=== PATIENT | female | born 1975 | race Caucasian/White ===

== ENCOUNTER → 2016-12-13 | Outpatient (CLI) | payer MEDICARE | END | disposition home or self-care (01) | LOC: KCIC MAMMO 15:44 | PROVIDERS: ATTEND Family Medicine | DX: Z12.31 Encounter for screening mammogram for malignant neoplasm of breast (principal) | CPT/HCPCS: G0202; 77067 ==

== ENCOUNTER → 2017-01-08 | Outpatient (CLI) | payer MEDICARE ==
--- NOTE | 2017-01-08 14:08 | KCIC ---
Left breast diagnostic ultrasound HISTORY: Asymmetric tissue density seen in the December 13, 2016 mammogram Sonographic examination was performed of the medial left breast and multiple static images were obtained. There is no focal abnormality identified. IMPRESSION: Negative examination. The asymmetric tissue density could be superimposition of normal fibroglandular tissue or fibrocystic changes. Recommend a 6 month follow-up left mammogram to assess stability. BI-RADS Category 1: Negative. These results were given to the patient in person. Electronically signed by: Ross Forman III, MD (01/08/2017 2:05 PM) [facility]
--- NOTE | 2017-01-08 14:10 | KCIC ---
History: asymmetric tissue density posterior medial left breast on the December 13, 2016 mammogram. Technique: The following digital mammographic additional views were obtained: spot CC spot MLO. Computer aided detection was utilized with iCAD Second Look 7.2-H Findings: The density appears benign and could be fibrocystic changes or an island of normal fibroglandular tissue. Impression: Likely benign recommend the patient return for a six-month follow-up left mammogram to assess stability. BI-RADS Category 3: Probably Benign. These results were given to the patient in person. Patient information is entered into the [facility] reminder system using [employer] with a target due date for the next screening mammogram. The patient will receive a reminder. A mammogram does not have 100% sensitivity and therefore a negative imaging study should not delay further work up of a suspicious abnormality. "Our facility is accredited by the [employer] Mammography [employer]." Electronically signed by: Ross Forman III, MD (01/08/2017 2:07 PM) [facility]
== END | disposition home or self-care (01) ==
LOC: KCIC MAMMO 12:54
PROVIDERS: ATTEND Family Medicine
DX: R92.8 Other abnormal and inconclusive findings on diagnostic imaging of breast (principal)
CPT/HCPCS: 76641; G0206; 77065

== ENCOUNTER → 2017-02-03 | Outpatient (CLI) | payer MEDICARE ==
[2017-02-03 14:39] LABS: ALBUMIN 4.3 g/dL (3.4-5.0); ALBUMIN/GLOBULIN RATIO 1.2 (1.0-1.7); CALCIUM 9.1 mg/dL (8.5-10.1); CREATININE 0.9 mg/dL (0.6-1.0); POTASSIUM 3.8 mmol/L (3.5-5.1); TOTAL BILIRUBIN 0.3 mg/dL (0.2-1.0); TOTAL PROTEIN 7.8 g/dL (6.4-8.2)
== END | disposition home or self-care (01) ==
LOC: LAB 13:59
PROVIDERS: ATTEND Family Medicine
DX: E78.5 Hyperlipidemia, unspecified (principal)
CPT/HCPCS: 36415; 80053; 80061

== ENCOUNTER → 2017-04-30 | Outpatient (CLI) | payer MEDICARE ==
[2017-04-30 14:28] LABS: ALBUMIN 4.1 g/dL (3.4-5.0); ALBUMIN/GLOBULIN RATIO 1.1 (1.0-1.7); ALK PHOS 64 U/L (46-116); ALT (SGPT) 129 U/L (14-59); ANION GAP 10 (6-14); AST (SGOT) 76 U/L (15-37); BLOOD UREA NITROGEN 18 mg/dL (7-20); BUN/CREATININE RATIO 18 (6-20); CALCIUM 9.4 mg/dL (8.5-10.1); CARBON DIOXIDE 26 mmol/L (21-32); CHLORIDE 102 mmol/L (98-107); CHOLESTEROL 288 mg/dL (0-200); GFR 61.1; GLUCOSE 90 mg/dL (70-99); HDLC 29 mg/dL (40-60); POTASSIUM 3.9 mmol/L (3.5-5.1); SODIUM 138 mmol/L (136-145); TOTAL BILIRUBIN 0.5 mg/dL (0.2-1.0); TOTAL PROTEIN 7.9 g/dL (6.4-8.2); TRIGLYCERIDES 404 mg/dL (0-150); VLDLC 81 mg/dL (0-40)
[2017-04-30 14:29] LABS: LDLC 178 mg/dL (0-100); NON-HDL CHOLESTEROL 259 mg/dL (0-129)
[2017-04-30 14:33] LABS: CHOLESTEROL/HDL RATIO 9.9
[2017-04-30 14:39] LABS: THYROID STIM HORMONE (TSH) 0.592 uIU/mL (0.358-3.74)
== END | disposition home or self-care (01) ==
LOC: LAB 13:45
DX: E03.9 Hypothyroidism, unspecified (principal); E78.5 Hyperlipidemia, unspecified
CPT/HCPCS: 36415; 80053; 80061; 84443

== ENCOUNTER → 2017-06-16 | Outpatient (CLI) | payer MEDICARE | END | disposition home or self-care (01) | LOC: KCIC US 11:45 | DX: K76.0 Fatty (change of) liver, not elsewhere classified (principal); R16.0 Hepatomegaly, not elsewhere classified | CPT/HCPCS: 76705 ==

== ENCOUNTER → 2017-07-08 | Outpatient (CLI) | payer MEDICARE | END | disposition home or self-care (01) | LOC: KCIC MAMMO 12:28 | DX: N63.20 Unspecified lump in the left breast, unspecified quadrant (principal) | CPT/HCPCS: 76641; 77065 ==

== ENCOUNTER → 2017-09-11 | Outpatient (CLI) | payer MEDICARE ==
[2017-09-11 14:27] LABS: ALBUMIN 4.4 g/dL (3.4-5.0); ALBUMIN/GLOBULIN RATIO 1.2 (1.0-1.7); ALK PHOS 127 U/L (46-116); ALT (SGPT) 23 U/L (14-59); ANION GAP 12 (6-14); AST (SGOT) 16 U/L (15-37); BLOOD UREA NITROGEN 19 mg/dL (7-20); BUN/CREATININE RATIO 24 (6-20); CALCIUM 8.9 mg/dL (8.5-10.1); CARBON DIOXIDE 26 mmol/L (21-32); CHLORIDE 103 mmol/L (98-107); CHOLESTEROL 203 mg/dL (0-200); CREATININE 0.8 mg/dL (0.6-1.0); GLUCOSE 100 mg/dL (70-99); HDLC 32 mg/dL (40-60); LDLC 85 mg/dL (0-100); NON-HDL CHOLESTEROL 171 mg/dL (0-129); SODIUM 141 mmol/L (136-145); TOTAL BILIRUBIN 0.4 mg/dL (0.2-1.0); TRIGLYCERIDES 428 mg/dL (0-150); VLDLC 86 mg/dL (0-40)
[2017-09-11 14:28] LABS: CHOLESTEROL/HDL RATIO 6.3
== END | disposition home or self-care (01) ==
LOC: LAB 13:44
DX: E78.5 Hyperlipidemia, unspecified (principal)
CPT/HCPCS: 36415; 80053; 80061

== ENCOUNTER → 2017-10-22 | Outpatient (CLI) | payer MEDICARE, MEDICAID ==
[2017-10-22 15:54] LABS: ALBUMIN 4.2 g/dL (3.4-5.0); ALBUMIN/GLOBULIN RATIO 1.4 (1.0-1.7); CREATININE 0.8 mg/dL (0.6-1.0); TOTAL BILIRUBIN 0.3 mg/dL (0.2-1.0); TOTAL PROTEIN 7.3 g/dL (6.4-8.2)
[2017-10-22 15:55] LABS: CHOLESTEROL/HDL RATIO 5.8
== END | disposition home or self-care (01) ==
LOC: LAB 15:09
PROVIDERS: ATTEND Family Medicine
DX: E78.5 Hyperlipidemia, unspecified (principal)
CPT/HCPCS: 36415; 80053; 80061

== ENCOUNTER → 2018-01-05 | Outpatient (CLI) | payer MEDICARE, OTHER ==
--- NOTE | 2018-01-05 16:54 | KCIC ---
Bilateral diagnostic digital mammograms: Reason for examination: Follow-up density. Comparison is made to previous studies dated 07/08/2017 and 12/13/2016. Interpretation was made with the benefit of CAD. The skin and nipples show no abnormalities. No abnormal axillary lymph nodes are seen. The breast parenchyma shows scattered fibroglandular density. (Breast density: Category B.) There continues to be some asymmetric parenchyma posterior medially in the left breast at the 9:00 C position. This appears to be more prominent than on previous exam and will be further evaluated with ultrasound. There is also suggestion of a small nodule posterior medially in the right breast at approximately 5:00 C position measuring approximately 3 mm in size. This will be further evaluated with ultrasound. There are no other dominant masses, suspicious calcifications or architectural distortions. Impression: Increased nodularity in the posterior medial left breast at the 9:00 C position. New 3 mm nodule suggested. Posterior medially in the right breast at 5:00. Ultrasound to follow. BI-RADS Category 0: Incomplete. Needs additional imaging evaluation. Bilateral breast ultrasound: Comparison is made to ultrasound examination of the left breast dated 01/08/2017. Bilateral breast ultrasound was performed in the areas of mammographic concern and at the retroareolar and axillary regions. No discrete nodule is identified in the right breast. The density seen mammographically could represent a small vessel seen on end but recommend reevaluation with mammograms and ultrasound in 6 months. No abnormal appearing lymph nodes are seen in the right axilla. The left breast continues to show a patch of heterogeneous tissue in the 9:00 position 9 cm from the nipple. This however patient show more shadowing and heterogeneity on previous exam. This may represent fibrocystic change with some calcification but further evaluation with ultrasound biopsy is recommended. IMPRESSION: No suspicious abnormality seen in the right breast. Recommend reevaluation with mammograms and ultrasound in 6 months. Increasingly heterogeneous tissue at the 9:00 position of the left breast. This may represent fibrocystic changes but recommend further evaluation with ultrasound biopsy to exclude malignancy. BI-RADS Category 4: Suspicious. These findings were discussed with the patient and the patient's physician will be notified about these findings. "Our facility is accredited by the [employer] Mammography [employer]." This patient's information has been entered into a reminder system for the patient to be notified with the results of her examination and a target date for the next mammogram. Electronically signed by: Arlen Montez MD (01/05/2018 4:51 PM) [facility]
== END | disposition home or self-care (01) ==
LOC: KCIC MAMMO 13:00
PROVIDERS: ATTEND Family Medicine
DX: R92.8 Other abnormal and inconclusive findings on diagnostic imaging of breast (principal)
CPT/HCPCS: 76641; 77066

== ENCOUNTER → 2018-01-28 | Outpatient (CLI) | payer MEDICARE, OTHER ==
[2018-01-28 12:54] LABS: BASO # 0.1 x10^3/uL (0.0-0.2); BASO % 1 % (0-3); EOS # 0.3 x10^3/uL (0.0-0.7); EOS % 4 % (0-3); HEMATOCRIT 41.2 % (36.0-47.0); HEMOGLOBIN 14.6 g/dL (12.0-15.5); LYMPH # 1.6 x10^3/uL (1.0-4.8); LYMPH % 23 % (24-48); MEAN CORPUSCULAR HEMOGLOBIN 31 pg (25-35); MEAN CORPUSCULAR HGB CONC 36 g/dL (31-37); MEAN CORPUSCULAR VOLUME 88 fL (79-100); MONO # 0.5 x10^3/uL (0.0-1.1); MONO % 6 % (0-9); NEUT # 4.9 x10^3uL (1.8-7.7); NEUT % 67 % (31-73); PLATELET COUNT 251 x10^3/uL (140-400); RED CELL DISTRIBUTION WIDTH 12.8 % (11.5-14.5); WHITE BLOOD COUNT 7.3 x10^3/uL (4.0-11.0)
[2018-01-28 13:13] LABS: ALBUMIN 4.1 g/dL (3.4-5.0); ALBUMIN/GLOBULIN RATIO 1.2 (1.0-1.7); CALCIUM 9.6 mg/dL (8.5-10.1); CREATININE 0.8 mg/dL (0.6-1.0); GFR 78.7; TOTAL BILIRUBIN 0.3 mg/dL (0.2-1.0); TOTAL PROTEIN 7.6 g/dL (6.4-8.2)
[2018-01-28 13:17] LABS: POTASSIUM 3.7 mmol/L (3.5-5.1)
[2018-01-28 13:21] LABS: CHOLESTEROL/HDL RATIO 5.2
[2018-01-28 13:23] LABS: FREE T4 1.19 ng/dL (0.76-1.46); THYROID STIM HORMONE (TSH) 0.161 uIU/mL (0.358-3.74)
[2018-01-28 20:13] LABS: HEMOGLOBIN A1C 5.2 % (4.8-5.6)
[2018-01-30 18:13] LABS: CREATININE, UR 80.4 mg/dL (Not Estab.)
== END | disposition home or self-care (01) ==
LOC: LAB 12:21
PROVIDERS: ATTEND Specialist
DX: E88.81 Metabolic syndrome and other insulin resistance (principal); E78.5 Hyperlipidemia, unspecified; E03.9 Hypothyroidism, unspecified
CPT/HCPCS: 36415; 80053; 80061; 82530; 82570; 83036; 84439; 84443; 85025

== ENCOUNTER → 2018-02-03 | Outpatient (CLI) | payer MEDICARE, MEDICAID ==
[~2018-02-03] MED LIST: LIDOCAINE 1% Multi-Dose 20 ML VIAL. INJ ONE; LIDOCAINE 1% Multi-Dose 50 ML VIAL. INJ ONE; LIDOCAINE 2%/EPI 1:100,000 20 ML VIAL. IJ ONE
--- NOTE | 2018-02-05 14:13 | PATHOLOGY ---
[facility] Accession Number: [id number] . 01 Material submitted: . LEFT BREAST MASS . 01 Clinical history: . Left breast mass . 02 Diagnosis: Breast tissue, left breast mass needle biopsy: - DUCTAL CARCINOMA IN SITU, PAPILLARY/CRIBRIFORM TYPE, LOW GRADE, FOCAL. - Fibrocystic changes, with the following components: - Stromal fibrosis. - Duct ectasia. - Cystic change. - Chronic inflammation. LBQ/02/04/2018 . 02 Comment: There is no evidence of invasive carcinoma. . The case is also examined by Dr. Villalobos, who concurs with the diagnosis. (JPM/db; 02/04/2018) . 02 Electronically signed: . Cristobal Bueno MD, Pathologist NPI- [id number] . 01 Gross description: . Received in formalin labeled "Camila Roa, left breast," and additionally labeled on the requisition as "9:00, 9 CFN," are multiple needle cores of yellow-oseguera fibrofatty tissue measuring 2.0 x 2.7 x 0.5 cm in aggregate dimensions. The tissue submitted in its entirety in cassette A1 through A3. The cold ischemic time is 5 minutes. The total formalin fixation time is approximately 10 hours. (TSD; 02/03/2018) TOB/TOB . 02 Pathologist provided ICD-10: D05.12, N60.32, N61.0 . 02 CPT . 466634 Specimen Comment: A courtesy copy of this report has been sent to Specimen Comment: [phone], , . Specimen Comment: Report sent to ,DR BUCKLEY / DR MORALES Specimen Comment: A duplicate report has been generated due to demographic updates. Performed at: 01 [facility] [address] [facility] [address], [place] [id number] MD Boni Peña MD Phone: [phone] Performed at: 02 [facility] [address] [place], [place] [id number] MD Cristobal Bueno MD Phone: [phone]
--- NOTE | 2018-02-23 10:59 | RAD ---
Ultrasound-guided left breast biopsy, 02/03/2018: History: Suspicious breast density Previous studies demonstrated a suspicious sonographic abnormality at the 9:00 location approximately 9 cm from the nipple. Under local anesthesia, aseptic conditions and sonographic guidance the [facility] biopsy history was passed into this process via a medial approach. Multiple 12-gauge vacuum-assisted core samples were obtained. A biopsy marker was then deposited at the biopsy site. The biopsy instrument was removed and hemostasis obtained. Two-view postprocedural digital mammograms were then obtained to document position of the biopsy marker. It lies along the lateral margin of an irregular medial left breast density. The patient tolerated the procedure well and left the department in good condition. The subsequent pathology report indicated the presence of ductal carcinoma in situ. This is considered to be concordant finding. Note: A call was placed to Dr. Rivera's office to confirm receipt of these findings.
== END | disposition home or self-care (01) ==
LOC: US 12:19
PROVIDERS: ATTEND Surgery
DX: D05.82 Other specified type of carcinoma in situ of left breast (principal); N60.32 Fibrosclerosis of left breast; N60.42 Mammary duct ectasia of left breast; N61.0 Mastitis without abscess; E78.5 Hyperlipidemia, unspecified; E03.9 Hypothyroidism, unspecified
CPT/HCPCS: 19083; 77065; 88305; 88361; C1713; 19081; 76942

== ENCOUNTER → 2018-02-13 | Outpatient (CLI) | payer MEDICARE, MEDICAID | END | disposition home or self-care (01) | LOC: LAB 07:32 | PROVIDERS: ATTEND Specialist | DX: R82.998 Other abnormal findings in urine (principal) | CPT/HCPCS: 36415; 82533 ==

== ENCOUNTER → 2018-03-19 | Outpatient (CLI) | payer MEDICARE, MEDICAID ==
--- NOTE | 2018-03-19 08:58 | RAD ---
Left breast ultrasound, 03/19/2018: History: Abnormal breast MRI The patient has undergone a previous breast biopsy medially in the left breast at the 9:00 location which delineated ductal carcinoma in situ. A subsequent outside MR study demonstrated an additional focus of abnormal enhancement located more centrally and anteriorly in the left breast at the 9:00 location. Today we performed a targeted ultrasound exam of that region. At the 9:00 location approximately 7 cm from the nipple there is a irregularly marginated hypoechoic lesion measuring 6 x 5 x 3 mm. This appears to correspond to the MR abnormality. It is slightly taller than wide. The findings are suspicious for malignancy. IMPRESSION: Suspicious nodule in the medial left breast which appears to correspond to the MR abnormality. Ultrasound-guided biopsy is planned.
--- NOTE | 2018-03-23 13:29 | PATHOLOGY ---
[facility] Accession Number: [id number] . 01 Material submitted: . LEFT BREAST TISSUE 9:00 7 CMFN . 01 Clinical history: . Left breast mass. . 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 - Invasive carcinoma is present in several different tissue cores and it has a maximal contiguous length of 6 mm, at least. - Ductal carcinoma in situ, cribriform type, nuclear grade 2/3, focal. . (Please see comment). [facility]/03/23/2018 . 02 Comment: The findings in this case were relayed to Estelita at Dr. Dejuan Rivera's office on 03/23/2018. . This case has also been reviewed by Dr. Randy Lopez who agrees with the diagnosis. . Breast prognostic studies have been ordered on the tumor in block A1. The results will be issued separately. . . . . ([facility]2018) . 02 Electronically signed: . Rogerio Villalobos MD, Pathologist NPI- [id number] . 01 Gross description: . Received in formalin labeled "Camila Roa, left breast tissue 9:00" is a 2.0 x 0.8 x 0.2 cm aggregate of yellow-watkins cylindrical soft tissue cores. The specimen is submitted entirely in cassette A1. The specimen is removed from the patient at 0924 and placed in formalin at 0927 on March 19, 2018. The specimen is removed from formalin at 2150 on March 21, 2018. (SK; 03/19/2018) SYC/SYC . 02 Pathologist provided ICD-10: C50.911, D05.11 . 02 CPT . 996803 Specimen Comment: A courtesy copy of this report has been sent to Specimen Comment: [phone], . Specimen Comment: Report sent to and Performed at: [address] [id number] MD Boni Peña MD Phone: [phone] Performed at: [address] [id number] MD Efren Benavidez MD Phone: [phone]
--- NOTE | 2018-03-25 09:15 | RAD ---
Ultrasound-guided left breast biopsy, 03/19/2018: History: Suspicious breast lesion Today's ultrasound study demonstrated a suspicious left breast nodule at the 9:00 location approximately 7 cm from the nipple. Under local anesthesia, aseptic conditions and sonographic guidance the [employer] biopsy instrument was passed into the posterior aspect of this nodule via a medial approach. Multiple 12-gauge vacuum-assisted core samples were obtained and sent to pathology for evaluation. A biopsy marker was then deposited at the biopsy site. The biopsy instrument was removed and hemostasis obtained. Two-view postprocedural digital mammograms were then obtained to document position of the biopsy marker. The patient tolerated the procedure well and left the department in good condition. The subsequent pathology report indicated the presence of invasive well-differentiated ductal carcinoma. This is considered to be a concordant finding.
== END | disposition home or self-care (01) ==
LOC: US 07:41
PROVIDERS: ATTEND Surgery
DX: C50.812 Malignant neoplasm of overlapping sites of left female breast (principal); Z88.1 Allergy status to other antibiotic agents
CPT/HCPCS: 19083; 76641; 77065; 88305; 88361; C1713; 19085; 76942

== ENCOUNTER 2018-04-06 06:54 | Observation (INO) | payer MEDICARE, MEDICAID ==
[~2018-04-06] VITALS: Ht 157.5 cm; Wt 95.3 kg
[2018-04-06] VITALS (9 sets, daily range): BP systolic 97–110; BP diastolic 56–67
[~2018-04-06 06:54] MED LIST changes: -LIDOCAINE 1% Multi-Dose 20 ML VIAL. INJ ONE; -LIDOCAINE 1% Multi-Dose 50 ML VIAL. INJ ONE; -LIDOCAINE 2%/EPI 1:100,000 20 ML VIAL. IJ ONE; +RISP3TAB23 PO
[2018-04-06] MEDS ORDERED: PROCHLORPERAZINE 10 MG/2 ML VIAL. IV PRN (07:00)
[2018-04-06] MEDS ORDERED: MORPHINE SULFATE 4 MG/ML VIAL. IV PRN ×2 (07:00→12:00)
[2018-04-06] MEDS ORDERED: HYDROmorphone 2 MG/ML VIAL IV PRN (07:00)
[2018-04-06] MEDS ORDERED: fentaNYL PF VIAL 100 MCG/2 ML VIAL IV PRN (07:00)
[2018-04-06] MEDS ORDERED: ONDANSETRON PF 4 MG/2 ML VIAL. IV PRN ×2 (07:00→12:00)
[2018-04-06] MEDS ORDERED: LIDOCAINE 1% PF 2 ML VIAL. ID PRN (07:00)
[2018-04-06] MEDS ORDERED: ZOLP10TA PO (07:39)
[2018-04-06] MEDS ORDERED: LORA1TAB PO (07:39)
[2018-04-06] MEDS ORDERED: METO50TA6 PO (07:39)
[2018-04-06] MEDS ORDERED: LAMO200T3 PO (07:39)
[2018-04-06] MEDS ORDERED: LEVO100T5 PO (07:39)
[2018-04-06] MEDS ORDERED: PANT20TA2 PO (07:39)
[2018-04-06] MEDS ORDERED: NIAC500T PO (07:39)
[2018-04-06] MEDS ORDERED: FENO48TA16 PO (07:39)
[2018-04-06] MEDS ORDERED: ARTANE (07:39)
[2018-04-06] MEDS ORDERED: QUET100T4 PO (07:39)
[2018-04-06] MEDS ORDERED: ATOR40TA59 PO (07:39)
[2018-04-06] MEDS ORDERED: PRAZ1CAP2 PO (07:39)
[2018-04-06] MEDS: IV RINGERS,LACTATED 1000ML 1,000 ML IV SCH ×2 (07:48→12:20)
[2018-04-06 08:01] LABS: U PREG PATIENT NEGATIVE (NEG)
[2018-04-06] MEDS ORDERED: DEXAMETHASONE SOD PHOS 20 MG/5 ML VIAL. ONE (08:28)
[2018-04-06] MEDS ORDERED: LIDOCAINE 2% PF Vial for OR 5 ML VIAL. ONE (08:28)
[2018-04-06] MEDS ORDERED: PROPOFOL 20 ML IV ONE (08:28)
[2018-04-06] MEDS ORDERED: MIDAZOLAM HCL/PF 2 MG/2 ML VIAL. ONE (08:28)
[2018-04-06] MEDS ORDERED: fentaNYL PF VIAL 100 MCG/2 ML VIAL ONE ×2 (08:28→10:39)
[2018-04-06] MEDS ORDERED: ONDANSETRON PF 4 MG/2 ML VIAL. ONE (08:28)
[2018-04-06] MEDS ORDERED: LIDOCAINE WITH 8.4% SOD BICARB 3 ML DISP.SYRIN. INJ ONE (08:30)
[2018-04-06] MEDS ORDERED: ISOSULFAN BLUE 50 MG/5 ML VIAL. SQ ONE (09:01)
[2018-04-06] MEDS ORDERED: BUPIVAC MPF-EPI 0.5%-1:200000 30 ML VIAL. ONE (09:02)
[2018-04-06] MEDS ORDERED: SEVOFLURANE > 120 MINUTES. IH ONE (11:07)
[2018-04-06] MEDS ORDERED: IV 1/2 NORMAL SALINE 1,000 ML IV SCH (11:51)
--- NOTE | 2018-04-06 11:51 | PDOC4 ---
Operative Note Operative Note Operative Note: Preoperative Diagnosis: Left breast cancer Postoperative Diagnosis: Same Procedure: Left simple mastectomy with sentinel lymph node biopsy Surgeon: Miguel Paraeducator: Brii VILLELA Anesthesia: Gen. EBL: 50 mL Specimen: [place] lymph nodes 1 through 3 to pathology, left breast stitch 12: 00 to pathology Drains: 19 Brune[place] round Duc drain Complications: None Indication: The patient is a 43-year-old female who underwent recent evaluation for abnormal mammographic findings. She was found to have one area of DCIS with a separate area of invasive carcinoma consistent with multifocal involvement. Based on this we advised for complete mastectomy. We will incorporate a sentinel lymph node biopsy and she understands the potential need for an axillary dissection. The risks of surgery were discussed with the patient which include bleeding, infection, wound healing problems, scar tissue, pain, anesthetic risk, potential need for additional surgery or procedure. She understands and would like to proceed. Description: The patient was initially taken to radiology where she underwent injection of technetium sulfur colloid. She was then The patient was taken to the operating room and placed supine on the operating table. Gen. anesthesia was performed. The left breast and axilla were prepped with ChloraPrep and draped in a standard surgical manner. 5 mL of Lymphazurin was injected deep to the nipple areolar complex. Several minutes were allowed to elapse. An elliptical tracing was made around the areola extending from the medial breast to the axilla. The superior lateral portion of the tracing was incised with a scalpel. Cautery dissection was carried down to the axillary tissues. There were three separate spots of increased nuclear uptake all of which stained with blue dye. These three separate lymph nodes were harvested and sent to pathology for evaluation. Further inspection showed no remaining areas of increased nuclear uptake or blue lymph nodes. Also there was no palpable adenopathy. Frozen section evaluation of the three sentinel lymph nodes showed no evidence of metastasis. We then proceeded with the mastectomy. With a scalpel an elliptical incision was made overlying the prior tracing. Cautery dissection was used to develop the skin flaps. The superior flap was developed first freeing the skin from the deeper breast parenchyma. The dissection continued superiorly to the level just below the clavicle. In a similar manner the inferior flap was developed which included the inframammary fold. In a medial to lateral fashion the breast was taken off of the chest wall. Several blood vessels were encountered which were readily controlled with cautery. The breast was then fully excised and marked with a stitch at the 12 o'clock position. The breast was sent to pathology for evaluation. Hemostasis was good and no other gross abnormalities were seen. A 19 Bruneian round Duc drain was placed in the chest wall which exited inferiorly. This was secured to the skin with a Vicryl suture. The subcutaneous tissue was then approximated with interrupted 3-0 Vicryl. The skin was closed with a 4-0 Monocryl suture. A sterile OpSite dressing was then applied. The patient tolerated the procedure well and was sent to the recovery room in stable condition. At the end of the case all counts were correct. MARYLIN BUCKLEY MD Apr 06, 2018 11:50
[2018-04-06] MEDS: fentaNYL PF VIAL 100 MCG/2 ML VIAL IV PRN ×3 (11:58→12:34)
[2018-04-06] MEDS ORDERED: oxyCODONE/APAP 5/325 1 TAB TABLET PO PRN (12:00)
[2018-04-06] MEDS ORDERED: 0.9 % SODIUM CHLORIDE 10 ML DISP.SYRIN. IV PRN (12:00)
[2018-04-06] MEDS ORDERED: risperiDONE 1 MG TABLET. PO SCH ×2 (12:30→21:00)
[2018-04-06] MEDS ORDERED: ZOLPIDEM 5 MG TABLET. PO PRN (12:30)
--- NOTE | 2018-04-06 13:00 | NUR ---
Received report from Keke SANDERS in recovery. Pt arrived to room 420 per bed. Pt is awake and alert. Dressing to left breast dry and intact. ROMULO Drain intact and small amount of serous sang fluid noted in drain.
[2018-04-06] MEDS: LORazepam 1 MG TABLET PO SCH ×2 (14:00→20:47)
[2018-04-06] MEDS: lamoTRIgine 100 MG TABLET. PO SCH (14:38)
[2018-04-06] MEDS: FENOFIBRATE 54 MG TABLET. PO SCH (14:39)
[2018-04-06] MEDS: METOPROLOL TART IMMED RELEASE 50 MG TABLET. PO SCH ×2 (14:40→20:49)
[2018-04-06] MEDS: LEVOTHYROXINE 100 MCG TABLET PO SCH (14:43)
[2018-04-06] MEDS: oxyCODONE/APAP 5/325 1 TAB TABLET PO PRN ×2 (14:48→20:50)
--- NOTE | 2018-04-06 15:10 | RAD ---
Examination: SENTINEL NODE INJECTION History: pre op sentinel node injection only 0.8mci 99mTc Sulfur Colloid (filtered); left breast cancer Comparison/Correlation: None Findings: Risks and benefits of sentinel node injection were discussed with the patient and informed consent was obtained. Cleansing with Betadine was performed about the breasts at the 12:00, 3:00, 6:00, 9:00 periareolar region. 0.8 mCi technetium 99m sulfur colloid was introduced intradermally in 4 equal portions at each site. Patient tolerated the procedure well. Impression: Successful intradermal administration of technetium 99 M sulfur colloid. No immediate complication. Electronically signed by: Finn Lebron MD (04/06/2018 3:06 PM) [facility]
[2018-04-06] MEDS: PANTOPRAZOLE 40 MG TABLET.DR. PO SCH (17:01)
[2018-04-06] MEDS ORDERED: QUEtiapine 100 MG TABLET. PO SCH (21:00)
[2018-04-06] MEDS ORDERED: PRAZOSIN 1 MG CAPSULE. PO SCH (21:00)
[2018-04-06] MEDS ORDERED: NIACIN ER 500 MG TABLET.ER PO SCH (21:00)
[2018-04-07 03:00] VITALS: BP 113/65
[2018-04-07] MEDS: oxyCODONE/APAP 5/325 1 TAB TABLET PO PRN ×2 (03:21→08:20)
[2018-04-07] MEDS: LEVOTHYROXINE 100 MCG TABLET PO SCH (06:23)
[2018-04-07] MEDS: PANTOPRAZOLE 40 MG TABLET.DR. PO SCH (06:23)
[2018-04-07 07:00] VITALS: BP 118/71
[2018-04-07] MEDS: LORazepam 1 MG TABLET PO SCH (08:15)
[2018-04-07] MEDS ORDERED: OXYC1TAB15 PO (08:20)
[2018-04-07 08:21] VITALS: BP 118/71
[2018-04-07] MEDS: FENOFIBRATE 54 MG TABLET. PO SCH (08:21)
[2018-04-07] MEDS: METOPROLOL TART IMMED RELEASE 50 MG TABLET. PO SCH (08:21)
[2018-04-07] MEDS: lamoTRIgine 100 MG TABLET. PO SCH (08:21)
--- NOTE | 2018-04-07 08:23 | DISCH ---
DISCHARGE INSTRUCTIONS Condition on Discharge Condition on Discharge: Stable Activity After Discharge Activity Instructions for Disc: Activity as tolerated Bathing Instructions: Shower-keep dressing dry Lifting Instructions after Dis: No heavy lifting, No pulling or pushing Driving Instructions after Dis: Do not drive Diet after Discharge Diet after Discharge: Regular Wound Incision Care Wound/Incision Care: Do not change dressing, Reinforce dressing PRN Other wound/incision instructi: drain care as instructed, empty 2x per day and record Contacting the DRDwight after DC Call your doctor for: Concerns you may have Follow-Up Follow up with: Dr Rivera 1 week, call to schedule [phone] ELMO CALDWELL APRN Apr 07, 2018 08:23
--- NOTE | 2018-04-07 08:36 | NUR ---
Pt. and family member verbalized and demonstrated home ROMULO drain care.
--- NOTE | 2018-04-07 08:50 | NUR ---
Pt. discharged to home with Rx, verbalized understanding of discharge instructions. Pt given dressing supples and numbered cup for ROMULO drain. L artemio woodg CDI.
[2018-04-07] MEDS ORDERED: ATORVASTATIN CALCIUM 40 MG TABLET. PO SCH (09:00)
--- NOTE | 2018-04-09 17:09 | PATHOLOGY ---
[facility] Accession Number: [id number] . 01 Material submitted: . PART A: LEFT BREAST LYMPH NODE HOT/BLUE - FS PART B: LEFT BREAST LYMPH NODE HOT/BLUE - FS PART C: LEFT BREAST LYMPH NODE HOT/BLUE - FS PART D: LEFT BREAST STITCH AT 12:00 . 01 Clinical history: . Breast cancer . 02 Diagnosis: A. Lymph node and fibroadipose tissue, left breast sentinel lymph node hot/blue #1: - Negative for tumor. . B. Lymph node and fibroadipose tissue, left breast sentinel lymph node hot/blue #2: - Negative for tumor. . C. Lymph node and fibroadipose tissue, left breast sentinel lymph node hot/blue #3: - Negative for tumor. . D. 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 SEE SYNOPTIC REPORT. - No lymphovascular tumor invasion identified. - Deep margin of resection negative for tumor. - Previous biopsy site changes (2), lower inner quadrant. - Proliferative fibrocystic changes with focal intraductal papillomatosis and florid ductal epithelial hyperplasia. - Sclerosing adenosis. . . CAP SYNOPTIC REPORT FOR INVASIVE CARCINOMA OF THE BREAST . Procedure ___ Total mastectomy Specimen Laterality ___ Left + Tumor Site: Invasive Carcinoma + ___ Lower inner quadrant Tumor Size ___ Greatest dimension of largest invasive focus >1 mm: 9 mm Histologic Type ___ Invasive carcinoma of no special type Histologic Grade (Wellborn Histologic Score) Glandular (Acinar)/Tubular Differentiation ___ Score 1 (>75% of tumor area forming glandular/tubular structures) Nuclear Pleomorphism ___ Score 2 Mitotic Rate ___ Score 1 Overall Grade ___ Grade 1 (scores of 3, 4, or 5) + Tumor Focality + ___ Single focus of invasive carcinoma Ductal Carcinoma In Situ (DCIS) ___ Present + ___ Positive for extensive intraductal component + Architectural Patterns + ___ Cribriform + Nuclear Grade + ___ Grade I-II (low-intermediate) + Necrosis + ___ Present, focal + Lobular Carcinoma In Situ (LCIS) + ___ No LCIS in specimen Margins Invasive Carcinoma Margins ___ Uninvolved by invasive carcinoma Distance from closest margin: 23 mm Specify closest margin: Posterior deep margin DCIS Margins ___ Uninvolved by DCIS Distance from closest margin: 11 mm Specify closest margin: Posterior deep margin Regional Lymph Nodes ___ Uninvolved by tumor cells Number of [place] Nodes Examined: 3 Treatment Effect ___ No known presurgical therapy + Lymphovascular Invasion + ___ Not identified . Pathologic Stage Classification (pTNM, AJCC 8th Edition) Primary Tumor (Invasive Carcinoma) (pT) ___ pT1b: Tumor >5 mm but less than or equal to 10 mm in greatest dimension Regional Lymph Nodes (pN) Category (pN) ___ pN0: No regional lymph node metastasis identified or ITCs only + Additional Pathologic Findings + Specify: See diagnoses + Microcalcifications + ___ Present in DCIS + ___ Present in invasive carcinoma + ___ Present in non-neoplastic tissue + Clinical History + The current clinical/radiologic breast findings for which this surgery is performed include: + ___ Radiologic finding Mass or architectural distortion (JPM/db; 04/09/2018) QTP/04/09/2018 . 02 Comment: The sentinel lymph nodes are examined at multiple levels. Immunoperoxidase stains for AE1/AE3 are also obtained on each of the sentinel lymph nodes and yield the following results: . AE1/AE3 (A1): Negative for tumor AE1/AE3 (B1): Negative for tumor AE1/AE3 (C1): Negative for tumor (JPM:pit/seth 04/09/2018) . . Special stains performed: AE1/AE3 on A1, B1, and C1. . 02 Electronically signed: . Cristobal Bueno MD, Pathologist NPI- [id number] . 01 Gross description: . A. The specimen is received fresh for intraoperative consultation and is designated "left breast sentinel lymph node hot/blue #1". This consists of a yellow-red fatty tissue measuring 2.0 x 1.8 x 1.3 cm in greatest dimension. There is focal bluish discoloration. Sectioning reveals a yellow partially fatty replaced lymph node measuring up to 1.5 cm showing focal bluish discoloration. This is submitted for frozen section as FSA1. The tissue remaining from frozen section is submitted for permanent sections as A1. . B. The specimen is received fresh for intraoperative consultation and is designated "left breast sentinel lymph node hot/blue #2". This consists of a segment of yellow-red fatty tissue measuring up to 3.0 x 1.6 x 0.8 cm. This shows focal bluish discoloration. Sectioning reveals a pale yellow-watkins lymph node measuring up to 1.8 cm showing focal bluish discoloration. This is submitted for frozen section without sectioning as FSB1. This tissue remaining from frozen section is submitted for permanent sections as B1. . C. The specimen is received fresh for intraoperative consultation and is designated "left breast sentinel lymph node hot/blue #3". This consists of a segment of yellow fatty tissue measuring up to 3.0 cm in length and 2.1 cm in width. This shows focal bluish discoloration. Sectioning reveals a centrally fatty replaced pale oseguera-watkins lymph node measuring up to 1.8 cm showing bluish discoloration. This is submitted for frozen section as FSC1. The tissue remaining from frozen section is submitted for permanent sections as C1. (JPM:pit 04/06/2018) . D. The specimen is received in formalin, labeled "Camila Roa, left breast, stitch at 12:00". Received is a 1180 g mastectomy specimen oriented with a suture designating the 12:00 aspect. The specimen measures 23.2 cm from medial to lateral, 21.2 cm from superior to inferior, and 6.9 cm from anterior to posterior. On the anterior aspect of the specimen, there is an ellipse of skin present measuring 17.4 x 8.2 cm with a centrally located, everted nipple and areolar complex, measuring 1.7 x 1.7 and 4.7 x 4.5 cm, respectively. The specimen is inked as follows: Superior/anterior-blue, inferior/anterior green, posterior-black. Sectioning reveals a possible previous biopsy site surrounded by white-watkins fibrous-appearing tissue measuring 1.0 x 0.8 x 0.5 cm in greatest dimensions, which is 2.3 cm from the closest margin (posterior). This site is located in the lower inner quadrant. Approximately 1.0 cm medial and 1.1 cm inferior to this possible biopsy site, there is a cystic pale-watkins mass present, with a metallic clip present, measuring 2.0 x 1.2 x 0.9 cm, which is 1.1 cm from the closest margin (posterior). This mass is also located in the lower inner quadrant. In between the possible previous biopsy site and mass, there is a slight amount of white-watkisn fibrous tissue with scattered firm areas. Sectioning reveals bright yellow fibrofatty cut surfaces throughout with no additional nodules or lesions noted grossly. Dilated ducts are noted upon further sectioning. The specimen is submitted representatively as follows: . D1 perpendicular section through nipple D2-D4 entire possible previous biopsy site D5-D7 entire cystic mass adjacent to possible previous biopsy site D8-D10 customer relations representative sections from fibrous tissue with scattered firm areas in between possible previous biopsy site and mass D11 upper inner quadrant D12 lower inner quadrant D13 lower outer quadrant D14 upper outer quadrant. (CAA; 04/07/2018) . INTRAOPERATIVE CONSULTATION WITH FROZEN SECTION: (Cristobal Bueno MD) . FSA1: Left breast sentinel lymph node hot/blue #1: - Negative for tumor. - The results are reported to Dr. Rivera in the operating room. . FSB1: Left breast sentinel lymph node hot/blue #2: - Negative for tumor. - The results are reported to Dr. Rivera in the operating room. . FSC1: Left breast sentinel lymph node hot/blue #3: - Negative for tumor. - The results are reported to Dr. Rivera in the operating room. (JPM:pit/seth 04/09/2018) . Frozen section performed at [facility], [address] [place] [id number]. [facility]/QTP . 02 Pathologist provided ICD-10: C50.912, D05.12 . 02 CPT . 938307, 825928, 714353, 527185, 939067, 270684, [id number], [id number] Specimen Comment: A courtesy copy of this report has been sent to Specimen Comment: [phone], . Specimen Comment: Report sent to / DR MORALES Specimen Comment: A duplicate report has been generated due to demographic updates. Performed at: 01 [facility] [address] [facility] [address], [place] [id number] MD Boni Peña MD Phone: [phone] Performed at: 02 [facility] [address] [place], [place] [id number] MD Cristobal Bueno MD Phone: [phone]
== END 2018-04-07 09:00 | disposition home or self-care (01) ==
LOC: SURG 06:54 → 4 NORTH 11:51
PROVIDERS: ADMIT Surgery; ATTEND Surgery
DX: C50.912 Malignant neoplasm of unspecified site of left female breast (principal)
CPT/HCPCS: 19303; 38525; 38792; 81025; 88307; 88331; 88342; A7015; A9541; G0378; G0379; J0696; J0780; J1100; J2001; J2250; J2405; J2704; J3010; Q9968; 96374; J3490; J7120

== ENCOUNTER → 2018-09-24 | Outpatient (CLI) | payer MEDICARE, MEDICAID ==
[~2018-09-24] MED LIST changes: +ARTANE; +ATOR40TA59 PO; +FENO48TA16 PO; +LAMO200T3 PO; +LEVO100T5 PO; +LORA1TAB PO; +METO50TA6 PO; +NIAC500T PO; +OXYC1TAB15 PO; +PANT20TA2 PO; +PRAZ1CAP2 PO; +QUET100T4 PO; +ZOLP10TA PO
--- NOTE | 2018-09-24 15:06 | KCIC ---
CHEST PA LATERAL History: Cough, shortness of breath. Mastectomy in April 2018.. Comparison: None FINDINGS: Heart size is not enlarged. No evidence of pneumothorax, pleural effusion or consolidation. Bones appear grossly intact. IMPRESSION: No evidence of consolidating infiltrate. Electronically signed by: Arslan Marsh MD (09/24/2018 3:03 PM) [facility]
== END | disposition home or self-care (01) ==
LOC: KCIC 13:50
PROVIDERS: ATTEND Nurse Practitioner Family
DX: R05 Cough (principal)
CPT/HCPCS: 71046

== ENCOUNTER → 2018-10-22 | Day surgery (SDC) | payer MEDICARE, MEDICAID ==
[~2018-10-22] MED LIST changes: +IV RINGERS,LACTATED 1000ML 1,000 ML IV ONE; +LIDOCAINE 2% PF 5 ML VIAL. ONE; +PROPOFOL 40 ML IV ONE; +TAMO20TA PO; +TRIH5TAB2 PO
[2018-10-22 13:35] VITALS: BP 116/68
== END ==
LOC: ENDOS 11:13
PROVIDERS: ATTEND Internal Medicine Gastroenterology
DX: K22.2 Esophageal obstruction (principal); K21.9 Gastro-esophageal reflux disease without esophagitis; K44.9 Diaphragmatic hernia without obstruction or gangrene; F41.9 Anxiety disorder, unspecified; F32.9 Major depressive disorder, single episode, unspecified; E78.00 Pure hypercholesterolemia, unspecified; E03.9 Hypothyroidism, unspecified; Z87.891 Personal history of nicotine dependence; Z88.8 Allergy status to other drugs, medicaments and biological substances; Z85.3 Personal history of malignant neoplasm of breast; Z98.890 Other specified postprocedural states
CPT/HCPCS: 43235; 43450; J2001; J2704

== ENCOUNTER → 2018-11-04 | Outpatient (CLI) | payer MEDICARE, MEDICAID ==
[2018-10-22 13:35] VITALS: BP 116/68
[~2018-11-04] MED LIST changes: -IV RINGERS,LACTATED 1000ML 1,000 ML IV ONE; -LIDOCAINE 2% PF 5 ML VIAL. ONE; -PROPOFOL 40 ML IV ONE
--- NOTE | 2018-11-04 15:04 | RAD ---
Gastric Emptying Study Indication: GERD, coughing x5 months. Procedure: Anterior and posterior projection static images are obtained over the stomach following oral administration of 2.1 mCi of 99 M technetium sulfur colloid in a solid meal (egg, water, and toast). Time points include an immediate baseline, and 1, 2, 3, and 4 hours post ingestion. Findings: There is progressive emptying of the stomach on sequential images. Percentage retention at one hour is 55% (normal 34.8-91%). Two hours 43% (normal 2.7-60%). Three hours 24% (normal 0.5-28%). Four hours 18% (normal 0-10%). The calculated T1/2 is 87 minutes. 40-90 minutes is considered normal. IMPRESSION: 1. The calculated T1/2 of emptying is upper limits of normal. 2. The 4 hour percentage retention value is abnormal, the 3 hour value is upper limits of normal, and earlier values are normal. Electronically signed by: Agustin Osullivan MD (11/04/2018 3:01 PM) [id number]
== END | disposition home or self-care (01) ==
LOC: NM 07:54
PROVIDERS: ATTEND Internal Medicine Gastroenterology
DX: K21.9 Gastro-esophageal reflux disease without esophagitis (principal)
CPT/HCPCS: 78264; A9541

== ENCOUNTER → 2018-12-16 | Outpatient (CLI) | payer MEDICARE, MEDICAID ==
[2018-10-22 13:35] VITALS: BP 116/68
[~2018-12-16] MED LIST changes: +SINCALIDE 1.96 MCG in IV NORMAL SALINE 50ML 30 ML IV ONE
--- NOTE | 2018-12-16 12:35 | RAD ---
Examination: NM HEPATOBILIARY SCAN W PHARM History: Epigastric abdominal pain Comparison/Correlation: None Findings: 5 mCi technetium 99m Choletec was intravenously administered for purposes of hepatobiliary scintigraphy. Uptake of radiotracer by liver is normal. Gallbladder is visualized as early as 5 minutes. Radiotracer is present within small bowel before 20 minutes. After 60 minutes, 1.96 mcg Kinevac was intravenously administered for gallbladder ejection fraction determination. Gallbladder ejection fraction of 57 percent is identified over the course of 29 minutes. No biliary dilatation. Impression: Normal hepatobiliary scintigraphy. Normal gallbladder ejection fraction. Electronically signed by: Finn Lebron MD (12/16/2018 12:32 PM) [facility]
--- NOTE | 2018-12-16 12:38 | RAD ---
Examination: ABDOMEN LTD History: Epigastric abdominal pain Comparison/Correlation: None Findings: Limited right upper quadrant abdominal ultrasound exam was performed. Fatty infiltration of liver is noted. Liver measures 20 cm longitudinal. Gallbladder sludge is present with no cholelithiasis or findings of cholecystitis. No pericholecystic fluid. Right kidney measures 13.7 cm x 6 x 5.2 cm. No right hydronephrosis. 5. Pancreas is unremarkable. Distal pancreas is obscured by bowel gas. No right upper quadrant ascites. Inferior vena cava is not well visualized. Impression: Fatty infiltration of the liver with hepatomegaly. Gallbladder sludge. No acute process. Electronically signed by: Finn Lebron MD (12/16/2018 12:35 PM) [facility]
== END | disposition home or self-care (01) ==
LOC: US 07:09
PROVIDERS: ATTEND Internal Medicine Gastroenterology
DX: K76.0 Fatty (change of) liver, not elsewhere classified (principal); K21.9 Gastro-esophageal reflux disease without esophagitis
CPT/HCPCS: 76705; 78227; A9537; J2805

== ENCOUNTER → 2019-01-26 | Outpatient (CLI) | payer OTHER, MEDICAID ==
[2018-10-22 13:35] VITALS: BP 116/68
[~2019-01-26] MED LIST changes: -SINCALIDE 1.96 MCG in IV NORMAL SALINE 50ML 30 ML IV ONE
--- NOTE | 2019-01-26 14:10 | KCIC ---
EXAM: Right breast diagnostic mammogram. HISTORY: 44-year-old female with a history of left breast cancer, status post left mastectomy, presents for annual mammography of the right breast. TECHNIQUE: Full-field digital craniocaudal, true lateral and mediolateral oblique views of both the right breast are obtained for evaluation. Computer aided detection with [employer] software version 9.3 was applied. COMPARISON: 03/19/2018, 02/03/2018, 01/05/2018, 07/08/2017, 01/08/2017 BREAST PARENCHYMAL DENSITY: Level B - Scattered fibroglandular densities. FINDINGS: There is no new suspicious mass, microcalcification or region of architectural distortion. IMPRESSION: BI-RADS Category 2: Benign finding(s). RECOMMENDATION: Annual mammography is recommended. If your mammogram demonstrates that you have dense breast tissue, which could hide abnormalities, and if you have other risk factors for breast cancer that have been identified, you might benefit from supplemental screening tests that may be suggested by your ordering physician. Dense breast tissue, in and of itself, is a relatively common condition. This information is not provided to cause undue concern, but rather to raise your awareness and to promote discussion with your physician regarding the presence of other risk factors, in addition to dense breast tissue. A report of your mammography results will be sent to you and your physician. You should contact your physician if you have any questions or concerns regarding this report. Mammography is a sensitive method for finding small breast cancers, but it does not detect them all and is not a substitute for careful clinical examination. A negative mammogram does not negate a clinically suspicious finding and should not result in delay in biopsying a clinically suspicious abnormality. PQRS compliance statement - Patient information was entered into a reminder system with a target due date for the next mammogram. "Our facility is accredited by the [employer] Mammography Program." Electronically signed by: Estelita Sainz MD (01/26/2019 2:07 PM) [facility]
== END | disposition home or self-care (01) ==
LOC: MAMMO 12:59 → KCIC MAMMO 13:31
PROVIDERS: ATTEND Internal Medicine Hematology & Oncology
DX: Z85.3 Personal history of malignant neoplasm of breast (principal); Z90.12 Acquired absence of left breast and nipple
CPT/HCPCS: 77065

== ENCOUNTER → 2019-02-22 | Outpatient (CLI) | payer OTHER, MEDICAID ==
[2018-10-22 13:35] VITALS: BP 116/68
[~2019-02-22] MED LIST changes: +BARIUM SULFATE 340 GM SUSPENSION. PO ONE; +BARIUM SULFATE 60% 355 ML SUSP PO ONE; +SIMETHICONE/SOD BICARB/CITRIC ACID PACKET. PO ONE
--- NOTE | 2019-02-22 16:56 | RAD ---
EXAM: DOUBLE CONTRAST BARIUM ESOPHAGRAM. HISTORY: Dysphagia, food gets stuck. COMPARISON: None. FINDINGS: Barium contrast material was administered orally and followed in its course through the pharynx, esophagus and gastroesophageal junction with fluoroscopy. Effervescent crystals were administered for air double contrast. Fluoroscopy time 2.9 minutes. 16 fluoroscopic series were obtained. The swallowing apparatus function normally. No pharyngeal lesions are seen. The esophagus appears normal in morphology and mucosal pattern. Endoscopy is more sensitive for mucosal lesions if there is persistent concern. A 12.5 mm barium pill passed promptly and no fixed stricture is identified. The lower esophageal sphincter occasionally did not relax promptly, rotating liquids within the mid and lower thoracic esophagus while upright or supine. Multiple swallows did not clear this material. Esophageal motility was generally ineffective, with moderate dysmotility in the middle and distal thirds on some swallows. No gross spasm was observed. The gastroesophageal junction is in its expected position. No reflux was observed. IMPRESSION: 1. Occasional delayed relaxation of the lower esophageal sphincter resulted in retention of fluids. Esophageal motility was generally ineffective in clearance of liquid, with occasional moderate dysmotility. Electronically signed by: Stephen Gray MD (02/22/2019 4:53 PM) [facility]
== END | disposition home or self-care (01) ==
LOC: RAD 14:04
PROVIDERS: ATTEND Internal Medicine Gastroenterology
DX: E87.79 Other fluid overload (principal)
CPT/HCPCS: 74220

== ENCOUNTER → 2019-04-28 | Outpatient (CLI) | payer MEDICARE, MEDICAID ==
[2018-10-22 13:35] VITALS: BP 116/68
[~2019-04-28] MED LIST changes: -BARIUM SULFATE 340 GM SUSPENSION. PO ONE; -BARIUM SULFATE 60% 355 ML SUSP PO ONE; -SIMETHICONE/SOD BICARB/CITRIC ACID PACKET. PO ONE
--- NOTE | 2019-04-28 15:58 | RAD ---
EXAM: Pelvic sonogram. HISTORY: Menorrhagia. TECHNIQUE: Sonographic imaging of the pelvis was performed. COMPARISON: None. FINDINGS: The uterus measures 12.0 x 5.8 x 4.6 cm. The endometrial stripe measures 13 mm in thickness. The right ovary measures 5.1 x 1.6 x 1.8 cm. The left ovary measures 7.9 x 4.5 x 4.0 cm. There is a complex left ovarian cyst with internal septation measuring 5.3 cm. There is no pelvic free fluid. IMPRESSION: 1. 5.3 cm complex left ovarian cyst with internal septation. 2. Thickened endometrial stripe. This remains within normal limits for a premenopausal female. Electronically signed by: Estelita Sainz MD (04/28/2019 3:55 PM) [id number]
== END ==
LOC: US 13:34
PROVIDERS: ATTEND Obstetrics & Gynecology
DX: N83.292 Other ovarian cyst, left side (principal); N92.0 Excessive and frequent menstruation with regular cycle
CPT/HCPCS: 76856

== ENCOUNTER 2019-06-10 06:21 | Observation (INO) | payer MEDICARE, MEDICAID ==
[~2019-06-10] VITALS: Ht 154.9 cm; Wt 96.6 kg
[~2019-06-10 06:21] MED LIST changes: +ARMO150T4 PO; +CLOZ100T7 PO; +CRESTOR40 MG PO; +DESV50TA12 PO; +LACT20SO PO; +MULT-697 PO; +SUCR1TAB PO; +TRAZ150T49 PO
[2019-06-10] MEDS ORDERED: HYDROmorphone 2 MG/ML VIAL IVP PRN (07:00)
[2019-06-10] MEDS ORDERED: MORPHINE SULFATE 2 MG/ML VIAL. IVP PRN (07:00)
[2019-06-10] MEDS ORDERED: PROCHLORPERAZINE 10 MG/2 ML VIAL. IVP PRN (07:00)
[2019-06-10] MEDS ORDERED: LIDOCAINE 1% PF 2 ML VIAL. ID PRN ×2 (07:00)
[2019-06-10] MEDS ORDERED: MORPHINE SULFATE 2 MG/ML VIAL. IV PRN (07:00)
[2019-06-10] MEDS ORDERED: fentaNYL PF VIAL 100 MCG/2 ML VIAL IVP PRN ×2 (07:00)
[2019-06-10] MEDS ORDERED: PROCHLORPERAZINE 10 MG/2 ML VIAL. IV PRN ×2 (07:00→11:15)
[2019-06-10] MEDS ORDERED: ONDANSETRON PF 4 MG/2 ML VIAL. IV PRN ×2 (07:00→11:15)
[2019-06-10] MEDS ORDERED: fentaNYL PF VIAL 100 MCG/2 ML VIAL IV PRN ×2 (07:00)
[2019-06-10] MEDS ORDERED: IV RINGERS,LACTATED 1000ML 1,000 ML IV SCH ×2 (07:00)
[2019-06-10] MEDS ORDERED: ONDANSETRON PF 4 MG/2 ML VIAL. IVP PRN (07:00)
[2019-06-10] MEDS ORDERED: HYDROmorphone 2 MG/ML VIAL IV PRN (07:00)
[2019-06-10] MEDS ORDERED: SURGICEL HEMOSTAT 4X8 EACH. ONE (07:17)
[2019-06-10] MEDS ORDERED: ESTROGENS, CONJ VAGINAL CREAM 30GM TUBE. ONE (07:17)
[2019-06-10] MEDS ORDERED: INDIGOTINDISULFONATE SODIUM 40 MG/5 ML AMPUL. ONE (07:18)
[2019-06-10] MEDS ORDERED: LIDOCAINE 1%/EPI 1:100,000 20 ML VIAL. ONE (07:18)
[2019-06-10] MEDS ORDERED: BUPIVACAINE-EPI 0.25%-1:200000 MPF 30 ML VIAL. ONE (07:18)
[2019-06-10 07:39] LABS: CALCIUM 8.7 mg/dL (8.5-10.1); CREATININE 0.8 mg/dL (0.6-1.0); GFR 78.3; POTASSIUM 3.8 mmol/L (3.5-5.1)
[2019-06-10 07:45] LABS: ALBUMIN 3.4 g/dL (3.4-5.0); ALBUMIN/GLOBULIN RATIO 1.2 (1.0-1.7); TOTAL BILIRUBIN 0.3 mg/dL (0.2-1.0); TOTAL PROTEIN 6.3 g/dL (6.4-8.2)
[2019-06-10] MEDS ORDERED: fentaNYL PF VIAL 100 MCG/2 ML VIAL ONE (08:18)
[2019-06-10] MEDS ORDERED: ROCURONIUM 50 MG/5 ML VIAL. ONE ×2 (08:18→10:36)
[2019-06-10] MEDS ORDERED: FAMOTIDINE 20 MG/2 ML VIAL ONE (08:18)
[2019-06-10] MEDS ORDERED: KETOROLAC 30 MG/ML VIAL. ONE (08:19)
[2019-06-10] MEDS ORDERED: LIDOCAINE 2% PF 5 ML VIAL. ONE ×2 (08:19→10:59)
[2019-06-10] MEDS ORDERED: ONDANSETRON PF 4 MG/2 ML VIAL. ONE (08:19)
[2019-06-10] MEDS ORDERED: DEXAMETHASONE SOD PHOS 4 MG/ML VIAL ONE (08:19)
[2019-06-10] MEDS ORDERED: SEVOFLURANE 61 TO 120 MINUTES. IH ONE (08:19)
[2019-06-10] MEDS ORDERED: PROPOFOL 20 ML IV ONE (08:19)
[2019-06-10] MEDS ORDERED: PHENYLEPHRINE in 0.9% NACL PF 1 MG/10 ML SYRINGE. IV ONE (09:17)
[2019-06-10] MEDS ORDERED: MIDAZOLAM HCL/PF 2 MG/2 ML VIAL. ONE (09:19)
[2019-06-10] MEDS ORDERED: NEOSTIGMINE METHYLSULFATE 5 MG/5 ML SYRINGE. ONE (09:48)
[2019-06-10] MEDS ORDERED: GLYCOPYRROLATE 1 MG/5 ML VIAL. ONE (09:48)
--- NOTE | 2019-06-10 11:11 | PDOC ---
BRIEF OPERATIVE NOTE Date: Jun 10, 2019 Pre-Op Diagnosis 1. Fibroids 2. ROV COmplex Cyst 3. Menorrhagia Post-Op Diagnosis Same Procedure Performed LAVH & RSO Surgeon Dr. Lew Ticker Wirer Guard Immigration: Yash Anesthesia Type: General Blood Loss 100 ml Specimens Obtained cervix, uterus, livier. fallopian tubes and ROV Findings enlarged, fibroid uterus, ROV complex cyst 8 cm size, nml DEMARIO, livier. fallopian tubes with paratubal cysts Complications none Operative Note see dictation STEPAN LEW Jr, MD Jun 10, 2019 11:10
[2019-06-10] MEDS ORDERED: 0.9 % SODIUM CHLORIDE 10 ML DISP.SYRIN. IV PRN (11:15)
[2019-06-10] MEDS ORDERED: DEXTROSE 50% 25 GM / 50ML DISP.SYRIN. IV PRN (11:15)
[2019-06-10] MEDS ORDERED: OPIUM/BELLADONNA 30/16.2MG SUPP.RECT. PR PRN (11:15)
[2019-06-10] MEDS ORDERED: CALCIUM CARBONATE 500 MG TAB.CHEW PO PRN (11:15)
[2019-06-10] MEDS ORDERED: KETOROLAC 30 MG/ML VIAL. IV PRN (11:15)
[2019-06-10] MEDS ORDERED: ZOLPIDEM 5 MG TABLET. PO PRN (11:15)
--- NOTE | 2019-06-10 11:32 | OP ---
DATE OF SURGERY: PREOPERATIVE DIAGNOSES: 1. Fibroids. 2. Right ovarian complex cyst. 3. Menorrhagia. POSTOPERATIVE DIAGNOSES: 1. Fibroids. 2. Right ovarian complex cyst. 3. Menorrhagia. PROCEDURE: LAVH and RSO. SURGEON: Stepan Lew MD. HOCKEY INSTRUCTOR: Michelle. ANESTHESIA: GETA. ESTIMATED BLOOD LOSS: 100 mL. COMPLICATIONS: None. FINDINGS: Enlarged fibroid uterus, right ovarian complex cyst 8 cm size, normal left ovary and bilateral fallopian tubes with paratubal cysts. SUMMARY: A 44-year-old female with long history of menorrhagia as well as complex right ovarian cyst unresponsive to any medical treatment requiring surgery. The patient was counseled on risks, benefits and expectations of LAVH and RSO and voiced clear understanding to proceed. DESCRIPTION OF PROCEDURE: The patient was taken to surgery suite and placed in dorsal lithotomy position. She was prepped with Betadine solution for vaginal prep and ChloraPrep for abdominal prep. After adequate anesthesia, weighted speculum and curved [place] placed vaginally. Anterior lip of the cervix grasped with single tooth tenaculum. The [email or web address] uterine manipulator was then placed. The weighted speculum and curved [place] were removed. Attention was now placed on abdomen. Small transverse skin incision was made just below the umbilicus, through which a Veress needle was then placed. The abdomen was allowed to insufflate up to 1-1/2 liters CO2 gas. The Veress needle was then removed, 5 mm trocar was placed. Two additional incisions made in the left lower quadrant, which 5 mm trocars were placed as well. A 0.25% Marcaine with epinephrine was injected at each incision site prior to incision with scalpel. Once the camera was placed, the uterus was enlarged with fibroids. The right ovarian cyst with complex cyst of about 8 cm size. Left ovary appeared normal. There were paratubal cysts in both fallopian tubes. With aid of graspers and EnSeal device, a cystotomy was performed, decompressing the right ovary as much as possible from the fluid components with the suction ad clerk. The right infundibulopelvic ligament was coagulated and cut with the EnSeal device, the right round ligament was coagulated and cut. The right pelvic sidewall coagulated and cut just adjacent to the uterus all the way down to and including the right uterine artery. Bladder flap was created using EnSeal device. The left fallopian tube was dissected away from the left ovary using the EnSeal device. The left uteroovarian pedicle was coagulated and cut. The left round ligament was coagulated and cut. The left broad ligament was coagulated and cut down to and including the left uterine artery. Suction irrigation was utilized to verify good hemostasis. We then proceeded vaginally. Weighted speculum and curved Kenyatta were placed vaginally. The anterior lip of the cervix and the Valtchev uterine manipulator were removed. Good clamps were placed on the anterior and posterior lip of the cervix. Cervix was injected with 1% lidocaine with epinephrine circumferentially. Bovie cautery was utilized to circumscribe the cervix. The parametrial tissue was dissected away from the vaginal mucosa using blunt dissection with a moist Ray-Azalea. Parametrial tissue was clamped bilaterally with curved Camilo clamps, cut and suture ligated with 2-0 Vicryl suture. Posterior cul-de-sac was entered sharply with curved Landin scissors. Long weighted speculum was placed. Uterosacral ligaments were clamped bilaterally, cut, and suture ligated. Cardinal ligaments clamped bilaterally, cut, and suture ligated. We entered the anterior cul-de-sac bluntly. Two additional pedicles were taken just adjacent to the uterus, which were clamped with curved Camilo clamps, cut, and suture ligated. The cervix, uterus, bilateral fallopian tubes and right ovary containing a right ovarian cyst were removed in their entirety. A modified Messina's culdoplasty incorporating the uterosacral ligaments bilaterally was performed with 0 Vicryl suture. The remainder of the vaginal cuff was reapproximated using 2-0 Vicryl suture in [id number] manner. Moist vaginal packing was placed. We then proceeded abdominally. The abdomen was once again insufflated with 1-1/2 liters of CO2 gas. The scope was positioned. The vaginal cuff was visualized and hemostatic. Suction irrigation was utilized to verify good hemostasis. The trocars were removed under direct visualization. Abdomen was allowed to deflate as much as possible with mechanical manipulation. The 3 skin incisions were reapproximated using 4-0 Vicryl suture in subcuticular manner. The patient tolerated the procedure well and was taken to recovery room in stable condition. Sponge and needle count correct x 3. STEPAN LEW MD DR: VITALY/marlene JOB#: [id number] / [id number]
[2019-06-10 12:35] VITALS: BP 96/63
[2019-06-10 12:50] VITALS: BP 99/65
[2019-06-10 13:10] VITALS: BP 96/64
[2019-06-10] MEDS: oxyCODONE/APAP 5/325 1 TAB TABLET PO PRN ×2 (13:17→19:29)
[2019-06-10 14:30] VITALS: BP 98/65
[2019-06-10] MEDS: GABAPENTIN 300 MG CAPSULE. PO SCH (15:40)
[2019-06-10 16:37] VITALS: BP 87/60
[2019-06-10 21:13] VITALS: BP 84/46
[2019-06-11] MEDS: GABAPENTIN 300 MG CAPSULE. PO SCH ×2 (00:10→08:56)
[2019-06-11 00:17] VITALS: BP 109/68
[2019-06-11] MEDS: oxyCODONE/APAP 5/325 1 TAB TABLET PO PRN ×2 (05:11→14:02)
[2019-06-11 05:21] VITALS: BP 109/70
[2019-06-11 05:45] LABS: BASO % 0 % (0-3); EOS # 0.1 x10^3/uL (0.0-0.7); EOS % 2 % (0-3); HEMATOCRIT 33.3 % (36.0-47.0); HEMOGLOBIN 11.3 g/dL (12.0-15.5); LYMPH # 1.7 x10^3/uL (1.0-4.8); LYMPH % 18 % (24-48); MEAN CORPUSCULAR HEMOGLOBIN 30 pg (25-35); MEAN CORPUSCULAR HGB CONC 34 g/dL (31-37); MEAN CORPUSCULAR VOLUME 88 fL (79-100); MONO # 0.6 x10^3/uL (0.0-1.1); MONO % 7 % (0-9); NEUT # 6.7 x10^3/uL (1.8-7.7); NEUT % 73 % (31-73); PLATELET COUNT 243 x10^3/uL (140-400); RED BLOOD COUNT 3.81 x10^6/uL (3.50-5.40); WHITE BLOOD COUNT 9.2 x10^3/uL (4.0-11.0)
[2019-06-11] MEDS: SIMETHICONE 80 MG TAB.CHEW PO PRN ×2 (08:56→14:02)
[2019-06-11 12:30] VITALS: BP 111/70
--- NOTE | 2019-06-11 13:00 | PDOC ---
SURGICAL PROGRESS NOTE Subjective Pt. feeling well. Pain controlled. Vital Signs Vital Signs Date Time Temp Pulse Resp B/P (MAP) Pulse Ox O2 Delivery O2 Flow Rate FiO2 06/11/19 12:30 98.1 84 20 111/70 (84) 94 Room Air 98.1 06/10/19 11:42 10 I&O Intake and Output 06/11/19 07:00 Intake Total 2200 ml Output Total 1300 ml Balance 900 ml Intake Oral 600 ml IV Total 1600 ml Output Urine Total 1200 ml Estimated Blood Loss 100 ml PATIENT HAS A LOONEY: No General: Alert, Oriented X3, Cooperative HEENT: Atraumatic Lungs: Clear to auscultation Heart: Regular rate Abdomen: Normal bowel sounds, Soft, No tenderness, No masses Psych/Mental Status: Mental status NL Labs Laboratory Tests Test 06/10/19 06:39 06/10/19 07:02 06/11/19 05:05 Bedside Urine HCG, Qualitative Hcg negative (Negative) Sodium Level 138 mmol/L (136-145) Potassium Level 3.8 mmol/L (3.5-5.1) Chloride Level 103 mmol/L (98-107) Carbon Dioxide Level 24 mmol/L (21-32) Anion Gap 11 (6-14) Blood Urea Nitrogen 10 mg/dL (7-20) Creatinine 0.8 mg/dL (0.6-1.0) Estimated GFR (Cockcroft-Gault) 78.3 BUN/Creatinine Ratio 13 (6-20) Glucose Level 114 mg/dL (70-99) Calcium Level 8.7 mg/dL (8.5-10.1) Total Bilirubin 0.3 mg/dL (0.2-1.0) Aspartate Amino Transf (AST/SGOT) 20 U/L (15-37) Alanine Aminotransferase (ALT/SGPT) 21 U/L (14-59) Alkaline Phosphatase 50 U/L (46-116) Total Protein 6.3 g/dL (6.4-8.2) Albumin 3.4 g/dL (3.4-5.0) Albumin/Globulin Ratio 1.2 (1.0-1.7) White Blood Count 9.2 x10^3/uL (4.0-11.0) Red Blood Count 3.81 x10^6/uL (3.50-5.40) Hemoglobin 11.3 g/dL (12.0-15.5) Hematocrit 33.3 % (36.0-47.0) Mean Corpuscular Volume 88 fL (79-100) Mean Corpuscular Hemoglobin 30 pg (25-35) Mean Corpuscular Hemoglobin Concent 34 g/dL (31-37) Red Cell Distribution Width 13.0 % (11.5-14.5) Platelet Count 243 x10^3/uL (140-400) Neutrophils (%) (Auto) 73 % (31-73) Lymphocytes (%) (Auto) 18 % (24-48) Monocytes (%) (Auto) 7 % (0-9) Eosinophils (%) (Auto) 2 % (0-3) Basophils (%) (Auto) 0 % (0-3) Neutrophils # (Auto) 6.7 x10^3/uL (1.8-7.7) Lymphocytes # (Auto) 1.7 x10^3/uL (1.0-4.8) Monocytes # (Auto) 0.6 x10^3/uL (0.0-1.1) Eosinophils # (Auto) 0.1 x10^3/uL (0.0-0.7) Basophils # (Auto) 0.0 x10^3/uL (0.0-0.2) Laboratory Tests Test 06/11/19 05:05 White Blood Count 9.2 x10^3/uL (4.0-11.0) Red Blood Count 3.81 x10^6/uL (3.50-5.40) Hemoglobin 11.3 g/dL (12.0-15.5) Hematocrit 33.3 % (36.0-47.0) Mean Corpuscular Volume 88 fL (79-100) Mean Corpuscular Hemoglobin 30 pg (25-35) Mean Corpuscular Hemoglobin Concent 34 g/dL (31-37) Red Cell Distribution Width 13.0 % (11.5-14.5) Platelet Count 243 x10^3/uL (140-400) Neutrophils (%) (Auto) 73 % (31-73) Lymphocytes (%) (Auto) 18 % (24-48) Monocytes (%) (Auto) 7 % (0-9) Eosinophils (%) (Auto) 2 % (0-3) Basophils (%) (Auto) 0 % (0-3) Neutrophils # (Auto) 6.7 x10^3/uL (1.8-7.7) Lymphocytes # (Auto) 1.7 x10^3/uL (1.0-4.8) Monocytes # (Auto) 0.6 x10^3/uL (0.0-1.1) Eosinophils # (Auto) 0.1 x10^3/uL (0.0-0.7) Basophils # (Auto) 0.0 x10^3/uL (0.0-0.2) Assessment/Plan A: POD#1 s/p LAVH & RSO P: D/c home. STEPAN PEREZ Jr, MD Jun 11, 2019 13:00
[2019-06-11] MEDS ORDERED: GABA300C18 PO (13:03)
[2019-06-11] MEDS ORDERED: OXYC1TAB15 PO (13:03)
[2019-06-11] MEDS ORDERED: DOCU-109 PO (13:03)
--- NOTE | 2019-06-11 13:04 | DISCH ---
DISCHARGE INSTRUCTIONS Condition on Discharge Condition on Discharge: Stable Activity After Discharge Activity Instructions for Disc: Activity as tolerated Bathing Instructions: Shower-keep dressing dry, No Tub Bath until see Lifting Instructions after Dis: No heavy lifting Driving Instructions after Dis: No driving for 2 weeks Weight Bearing Status after Di: As tolerated Diet after Discharge Diet after Discharge: Regular Wound Incision Care Wound/Incision Care: Keep wound/cast CDI, Do not change dressing, Reinforce dressing PRN Contacting the DRDwight after DC Call your doctor for: Concerns you may have Follow-Up Follow up with: Dr. Lew in 2 wks STEPAN LEW Jr, MD Jun 11, 2019 13:04
--- NOTE | 2019-06-11 14:39 | NUR ---
DISCHARGE DISCHARGE AND INCISIONAL INSTRUCTIONS GIVEN TO PATIENT AND SISTER OVER SPEAKER PHONE. NO QUESTIONS OR CONCERNS NOTED. tO FOLLOW UP WITH DR PEREZ IN 2 WEEKS.
--- NOTE | 2019-06-11 15:06 | PATHOLOGY ---
[facility] Accession Number: [id number] . 01 Material submitted: . uterus - UTERUS,CERVIX,BILATERAL FALLOPIAN TUBES,RIGHT OVARY . 01 Clinical history: . Cyst of right ovary, fibroid uterus . 02 Diagnosis: "Uterus, cervix, bilateral fallopian tubes, right ovary", hysterectomy, bilateral salpingectomy and right oophorectomy: - Cervix with mild chronic cervicitis. - Endometrium with secretory pattern. - Myometrium with adenomyosis. - Fallopian tubes, bilateral, with paratubal cysts. - Ovary, right, with corpus luteal cyst, microscopic follicular cysts, resolving corpus luteum and corpora albicantia. . (CLW:mm; 06/11/2019) [facility] 06/11/2019 1219 Local . 02 Electronically signed: . Eula Cali MD, Pathologist NPI- [id number] . 01 Gross description: . The specimen is received in formalin labeled "Camila Roa, uterus, cervix, bilateral fallopian tubes and right ovary". Received is a 143 g, 10.5 x 6.4 x 5.1 cm uterus with attached cervix, attached left fallopian tube weighing 6 g, and attached right adnexa weighing 32 g. The uterine serosa is pink-watkins to pink-oseguera and smooth in appearance. The 1.5 cm cervical os is surrounded by pink-watkins, smooth ectocervical mucosa, which is predominantly detached between the 4:00 and 8:00 aspects. The uterus is oriented using the peritoneal reflection and the anterior paracervical margin is inked black. The uterus is opened laterally to reveal a pink-watkins, slightly corrugated endocervical canal measuring 3.4 cm in length. The endometrial cavity is triangular measuring 6.0 cm in length by 3.2 cm in width. The endometrium is pale watkins, glistening and lush in appearance and measures up to 0.4 cm in thickness. Serial sectioning reveals a watkins-pink, trabeculated myometrium measuring up to 2.3 cm in thickness. Extensive sectioning through the specimen reveals no grossly distinct nodules, lesions, or fibroids. . The left fimbriated fallopian tube measures 5.5 cm in length by up to 0.5 cm in diameter. There are two attached paratubal cyst measuring 0.9 and 2.3 cm filled with blood-tinged serous fluid. Sectioning reveals a pinpoint to patent lumen. . The right adnexa consists of a fimbriated fallopian tube measuring 4.9 cm in length by up to 0.5 cm in diameter attached to a 6.5 x 4.4 x 2.5 cm cystic ovary. The fallopian tube displays an attached paratubal cyst measuring 1.4 cm filled with clear serous fluid. Sectioning through the fallopian tube reveals a patent lumen and the fallopian tube appears grossly unremarkable. Sectioning through the ovary reveals a unilocular cystic structure measuring 3.9 cm filled with blood-tinged fluid. A slight amount of normal ovarian stroma is identified. The lining of the cyst is smooth to slightly shaggy in appearance with no grossly distinct papillary excrescences. The specimen is submitted representatively as follows: . A1 12:00 cervix A2 6:00 cervix A3 anterior endomyometrium A4 posterior endomyometrium A5 left fallopian tube A6-A8 contact representative sections of right adnexa. (CAA; 06/10/2019) [facility] 06/11/2019 1218 Local . 02 Pathologist provided ICD-10: N72, N80.0, N83.8, N83.01 . 02 CPT . 568896 Specimen Comment: A courtesy copy of this report has been sent to [phone], [phone] Specimen Comment: [id number] Specimen Comment: Report sent to / DR VALDES Performed at: 01 [facility] [address] [facility] [address], [place] [id number] MD Boni Peña MD Phone: [phone] Performed at: 02 [facility] [address] [id number] MD Efren Benavidez MD Phone: [phone]
== END 2019-06-11 15:24 | disposition home or self-care (01) ==
LOC: SURG 06:21 → 3 NORTH 11:00
PROVIDERS: ADMIT Obstetrics & Gynecology; ATTEND Obstetrics & Gynecology
DX: D25.9 Leiomyoma of uterus, unspecified (principal); N92.0 Excessive and frequent menstruation with regular cycle
CPT/HCPCS: 36415; 58552; 80053; 81025; 86850; 86900; 86901; J0696; J1100; J1885; J2250; J2370; J2704; J2710; J3010; J3490; J7120; 85025; 96374; A7015; G0378; G0379; J2405; J7030

== ENCOUNTER → 2020-02-02 | Outpatient (CLI) | payer OTHER, MEDICAID ==
[~2020-02-02] MED LIST changes: +DOCU-109 PO; +GABA300C18 PO
--- NOTE | 2020-02-02 14:14 | KCIC ---
Right breast diagnostic digital mammograms: Reason for examination: History of left breast cancer with mastectomy.. No right breast complaints Comparison is made to previous studies dated back to 12/13/2016. Interpretation was made with the benefit of CAD. The skin and nipple show no abnormalities. No abnormal axillary lymph nodes are seen. The breast parenchyma shows scattered fibroglandular density. (Breast density: Category B.) There was some subtle nodularity in the upper outer quadrant at approximately the 11:00 B position but with coned compression views this did not appear to persists in the appearance is similar to previous examinations. There are no other dominant masses, suspicious calcifications or architectural distortions. Impression: No evidence of malignancy. Recommend routine follow-up. BI-RADS Category 2: Benign. "Our facility is accredited by the [employer] Mammography [employer]." This patient's information has been entered into a reminder system for the patient to be notified with the results of her examination and a target date for the next mammogram. Electronically signed by: Arlen Montez MD (02/02/2020 2:11 PM) [id number]
== END ==
LOC: KCIC MAMMO 13:01
PROVIDERS: ATTEND Internal Medicine Hematology & Oncology
DX: R92.2 Inconclusive mammogram (principal); N63.11 Unspecified lump in the right breast, upper outer quadrant; Z17.0 Estrogen receptor positive status [ER+]; Z90.12 Acquired absence of left breast and nipple
CPT/HCPCS: 77065

== ENCOUNTER → 2021-02-27 | Outpatient (CLI) | payer OTHER, MEDICAID ==
[~2021-02-27] MED LIST changes: -TRIH5TAB2 PO; +TRIH5TAB3 PO
--- NOTE | 2021-02-27 11:25 | KCIC ---
EXAM: Right breast diagnostic mammogram. HISTORY: 46-year-old female with a history of left breast cancer, status post left mastectomy, presen ts for annual mammography of the right breast. TECHNIQUE: Full-field digital craniocaudal and mediolateral oblique 2D and 3D tomosynthesis images of the right breast are obtained for evaluation. Computer aided detection was applied. COMPARISON: 02/02/2020 and 01/26/2019 BREAST PARENCHYMAL DENSITY: Level B - Scattered fibroglandular densities. FINDINGS: There is no new suspicious mass, microcalcification or region of architectural distortion. There are stable areas of asymmetry within the right breast. There are few benign calcifications. The re is a suspected small benign axillary tail lymph node. IMPRESSION: BI-RADS Category 2: Benign finding(s). RECOMMENDATION: Annual mammography is recommended. If your mammogram demonstrates that you have dense breast tissue, which could hide abnormalities, and if you have other risk factors for breast cancer that have been identified, you might benefit from s upplemental screening tests that may be suggested by your ordering physician. Dense breast tissue, i n and of itself, is a relatively common condition. This information is not provided to cause undue c oncern, but rather to raise your awareness and to promote discussion with your physician regarding th e presence of other risk factors, in addition to dense breast tissue. A report of your mammography re sults will be sent to you and your physician. You should contact your physician if you have any ques tions or concerns regarding this report. Mammography is a sensitive method for finding small breast cancers, but it does not detect them all a nd is not a substitute for careful clinical examination. A negative mammogram does not negate a clin ically suspicious finding and should not result in delay in biopsying a clinically suspicious abnorma lity. PQRS compliance statement - Patient information was entered into a reminder system with a target due date for the next mammogram. "Our facility is accredited by the [employer] Mammography [employer]." Electronically signed by: Estelita Sainz MD (02/27/2021 11:23 AM) [email or web address]
== END ==
LOC: KCIC MAMMO 10:33
PROVIDERS: ATTEND Family Medicine
DX: R92.8 Other abnormal and inconclusive findings on diagnostic imaging of breast (principal); Z90.12 Acquired absence of left breast and nipple
CPT/HCPCS: 77065